=== PATIENT | male | born 1955 | race Caucasian/White ===

== ENCOUNTER 2019-05-05 21:16 | Emergency (ER) | payer BC ==
[~2019-05-05] VITALS: Ht 175.3 cm; Wt 93.0 kg
[2019-05-05 21:20] VITALS: Ht 175.3 cm; Wt 93.0 kg
[2019-05-05 22:20] LABS: PLATELET COUNT 147 x10^3mcL (130-400)
[2019-05-05 22:23] LABS: CALCIUM 8.2 mg/dL (8.5-10.1); CARBON DIOXIDE 33.4 mmol/L (21-32); CHLORIDE SERUM 108 mmol/L (98-107); GFR1 > 60 mL/min; GLUCOSE SERUM 121 mg/dL (74-106); SODIUM SERUM 143 mmol/L (136-145)
[2019-05-05 22:27] LABS: ALBUMIN 3.2 g/dL (3.4-5.0); ALKALINE PHOSPHATASE 82 U/L (46-116); ALT/SGPT 33 U/L (16-63); AST/SGOT 20 U/L (15-37); BILIRUBIN TOTAL 0.3 mg/dL (0.20-1.00); TOTAL PROTEIN, SERUM 5.9 g/dL (6.4-8.2)
[2019-05-05 23:03] LABS: BAND NEUTROPHIL 20 % (0-10); MONOCYTE 10 % (0-7); PLATELET MORPHOLOGY PLATELETS DECREASED; SEGMENTED NEUTROPHILS 30 % (37-75); rbc morphology (normal/abnorm) ABNORMAL (NORMAL)
[2019-05-06 00:08] VITALS: BP 145/89
== END 2019-05-06 00:08 | disposition home or self-care (01) ==
LOC: ED 21:16
PROVIDERS: Emergency Medicine
DX: T78.40XA Allergy, unspecified, initial encounter (principal); R06.00 Dyspnea, unspecified; X58.XXXA Exposure to other specified factors, initial encounter
CPT/HCPCS: 83880; J1200; J2930; J3490; J7030; J7620; Q0092